=== PATIENT | male | born 1995 | race Caucasian/White ===

== ENCOUNTER 2016-10-15 21:01 | Emergency (ER) | payer OTHER ==
[2016-10-15] MEDS ORDERED: FAMOTIDINE 20 MG/2 ML SDV ONE (21:12)
[2016-10-15] MEDS ORDERED: methylPREDNISolone SOD SUCC 125 MG/2 ML VIAL IVP ONE (21:28)
--- NOTE | 2016-10-15 21:28 | EDPHY ---
H & P Time Seen by Provider: 10/15/16 21:18 HPI/ROS: CHIEF COMPLAINT: Dysphagia, anaphylaxis HISTORY OF PRESENT ILLNESS: 21-year-old male presents to the emergency department by private vehicle with dysphagia and possible anaphylactic reaction. Patient has known allergy to tree nuts although he has never been formally diagnosed. He does not have an EpiPen. He states that he was at [employer] eating dinner and then within about 20 developed swelling in his throat difficulty swallowing. He is having pain in his chest and feeling like he is having difficulty breathing. Denies abdominal pain. Denies vomiting. No neck pain. No headache. REVIEW OF SYSTEMS: Constitutional: No fever, no chills. Eyes: No double or blurry vision. ENT: No sore throat. Respiratory: No cough, no shortness of breath. Cardiac: No chest pain. Gastrointestinal: No abdominal pain, vomiting or diarrhea. Genitourinary: No dysuria. Musculoskeletal: No neck or back pain. Skin: No rashes. Neurological: No headache. (Tavia Hughes) Past Medical/Surgical History: Food allergy (Tavia Hughes) Social History: Single (Tavia Hughes) Physical Exam: General Appearance: Alert, no distress. Eyes: Pupils equal and round. Extraocular motions are all intact. ENT: Mouth: Mucous membranes moist. Uvula is quite swollen. Tonsils are 3+. Muffled voice. Respiratory: No wheezing, rhonchi, or rales, lungs are clear to auscultation. Cardiovascular: Regular rate and rhythm. Gastrointestinal: Abdomen is soft and nontender, no masses, no rebound or guarding, bowel sounds normal. Neurological: Alert and oriented x 3, cranial nerves II through XII grossly intact Skin: Urticaria noted to back and chest wall. Musculoskeletal: Nontender to palpate along the cervical, thoracic or lumbar spine. Neck is supple. Extremities: Full range of motion and no peripheral edema. Psychiatric: Patient is oriented X 3, there is no agitation. (Tavia Hughes) Constitutional: Initial Vital Signs O2 Sat (%) 99 10/15/16 21:15 O2 Delivery Mode Room Air O2 (L/minute) 2 Allergies/Adverse Reactions: tree nut Allergy (Severe, Verified 10/15/16 21:25) Anaphylaxis Home Medications: Medication Instructions Recorded EPINEPHRINE [EPIPEN] 0.3 mg IM ONCE #2 syr 10/15/16 EPIPEN 10/15/16 predniSONE 60 mg PO DAILY 3 Days 10/15/16 Medical Decision Making ED Course/Re-evaluation: The patient was evaluated and managed by the physician's statistical assistant. My cosignature indicates that I reviewed the chart and I agree with the findings and plan of care as documented. I am the secondary supervising physician. ( Gail Wilkins) 21-year-old male presents to the emergency department with reports of difficulty breathing and concerns about anaphylaxis. The patient was given 0.3 mg of IM epinephrine, 20 mg of Pepcid IV, 25 mg of Benadryl IV, and 125 mg of Solu-Medrol IV. The patient was observed. Although the patient did not feel that his throat felt much better, he was not flushed anymore. His rash had resolved. He was given additional 25 mg of Benadryl. The patient was also seen examined by Dr. Gail Wilkins. He does not recommend repeat epinephrine as his symptoms are not getting any worse. Next Patient was observed for over 2 hours in the emergency department and felt better upon discharge. He was discharged home with EpiPen as well as prednisone. He was also encouraged to follow up with telepathist. (Tavia Hughes) Differential Diagnosis: Including but not limited to anaphylaxis, urticaria, acute allergic reaction, contact dermatitis (Tavia Hughes) - Data Points Medications Given: Discontinued Medications Diphenhydramine HCl (Benadryl Injection) 25 mg IVP EDNOW ONE Stop: 10/15/16 21:29 Last Admin: 10/15/16 21:10 Dose: 25 mg Diphenhydramine HCl (Benadryl Injection) 25 mg IVP EDNOW ONE Stop: 10/15/16 21:50 Last Admin: 10/15/16 21:49 Dose: 25 mg Epinephrine HCl (Epinephrine) 0.3 mg IM EDNOW ONE Stop: 10/15/16 21:29 Last Admin: 10/15/16 21:05 Dose: 0.3 mg Famotidine (Pepcid) 20 mg IVP EDNOW ONE Stop: 10/15/16 21:30 Last Admin: 10/15/16 21:20 Dose: 20 mg Sodium Chloride (Ns) 1,000 mls @ 0 mls/hr IV ONCE ONE PRN Reason: Wide Open Stop: 10/15/16 21:31 Last Admin: 10/15/16 21:20 Dose: 1,000 mls Methylprednisolone Sodium Succinate (Solu-Medrol) 125 mg IVP EDNOW ONE Stop: 10/15/16 21:29 Last Admin: 10/15/16 21:15 Dose: 125 mg Departure - Departure Disposition: Home, Routine, Self-Care Clinical Impression: Acute anaphylaxis Qualifiers: Encounter type: initial encounter Qualified Code(s): T78.2XXA - Anaphylactic shock, unspecified, initial encounter Condition: Serious Instructions: Food Allergy (ED), Anaphylaxis (ED) Additional Instructions: Prednisone daily for 3 days. You may continue Benadryl 50 mg every 6 hours over the next 24 hours. Pepcid daily for the next 24 hours for itching. Carry an EpiPen with you at all times. Return to the emergency department if you developed recurring rash, difficulty swallowing or breathing, or if you feel worse in any way. Referrals: Gabriel Burk, [Primary Care Provider] - As per Instructions Prescriptions: EPINEPHRINE [EPIPEN] 0.3 mg IM ONCE #2 syr predniSONE 60 mg PO DAILY 3 Days
[2016-10-15] MEDS ORDERED: FAMOTIDINE 20 MG/2 ML SDV IVP ONE (21:29)
[2016-10-15] MEDS ORDERED: NS 1,000 ML IV ONE (21:30)
[2016-10-15 22:49] VITALS: RESP 16
[2016-10-15 23:22] VITALS: BP 132/81; PULSE 110; TEMP 97.9; O2SAT 94
[2016-10-16] MEDS ORDERED: methylPREDNISolone SOD SUCC 125 MG/2 ML VIAL ONE (16:31)
== END 2016-10-15 23:21 | disposition home or self-care (01) ==
DX: T78.2XXA Anaphylactic shock, unspecified, initial encounter (principal)
CPT/HCPCS: 96374; J0171; J1200

== ENCOUNTER → 2018-04-14 | Outpatient (CLI) | payer OTHER | LOC: FIMAGING 08:06 | PROVIDERS: ATTEND Family Medicine | DX: J98.09 Other diseases of bronchus, not elsewhere classified (principal) ==